=== PATIENT | female | born 1985 | race Caucasian/White ===

== ENCOUNTER 2019-04-20 07:39 | Emergency (ER) | payer OTHER ==
[~2019-04-20] VITALS: Ht 160 cm; Wt 127.0 kg
== END 2019-04-20 08:31 | disposition home or self-care (01) ==
LOC: ER 07:39
DX: G89.11 Acute pain due to trauma (principal); M25.562 Pain in left knee

== ENCOUNTER 2019-08-14 11:23 | Emergency (ER) | payer OTHER ==
[~2019-08-14] VITALS: Ht 160 cm; Wt 127.0 kg
== END 2019-08-14 16:14 | disposition home or self-care (01) ==
LOC: ER 11:23
DX: R42 Dizziness and giddiness (principal)

== ENCOUNTER 2019-10-23 10:12 | Outpatient (CLI) | payer OTHER | END 2019-10-23 15:00 | disposition home or self-care (01) | LOC: LAB 10:12 | DX: J11.1 Influenza due to unidentified influenza virus with other respiratory manifestations (principal); R05 Cough; R07.89 Other chest pain ==

== ENCOUNTER 2019-11-16 13:57 | Outpatient (CLI) | payer OTHER | END 2019-11-16 14:05 | disposition home or self-care (01) | LOC: LAB 13:57 | DX: J11.1 Influenza due to unidentified influenza virus with other respiratory manifestations (principal); J06.9 Acute upper respiratory infection, unspecified; R05 Cough ==

== ENCOUNTER 2019-11-24 08:02 | Inpatient (IN) | payer OTHER ==
[~2019-11-24] VITALS: Ht 160 cm; Wt 108.9 kg
--- NOTE | 2019-11-24 08:35 | NUR ---
PACIENTE FEMINA ALERTA Y ORIENTADA. LA MISMA SE VE SUDOROSA Y CON TOS PRODUCTIVA. LA MISMA REFIERE LISSETH TENIDO EN LAS ULTIMAS 24 HORAS 4 EPISODIOS DE DIARREAS. AL MOMENMTO DEL TRIAGE PRESENTO FIEBRE DE 101.2.
--- NOTE | 2019-11-24 10:08 | NUR ---
PACIENTE RECIBIDA EN MANOLO DE EMERGENCIAS ALERTA Y ORIENTADA , EVALUADA PO RLE DR. MANTILLA , QUEIN EVALUA PACIENTE Y ES UBICADA EN AREA DE [facility] K[facility] , [place] A PACIENTE SOBRE PROCEDIMEINTO DE AILAMINETO QUIEN PACIETE REFIER EN TENDER , MIS.. SILVANA MORIAH MUESTRA DE SANGR SANTY CANALIZA PACIENTE EN MNAO DERECHA CON KAREN MEDIDAS ASEPTICAS,PACIENTE SE MANTIEEN OBSERVACION POR CAMBIOS EN BURT CONDICON.
--- NOTE | 2019-11-24 15:57 | NUR ---
SE RECIBE PACIENTE ALERTA Y ORIENTADA EN LAS BARTOLO ESFERAS, EN CAMA CON BARANDAS ELEVADAS EN AREA DE SECCION K AISLAMIENTO. VENOPUNCION JOSUÉ DE EDEMA Y ENROJECIMIENTO BAJANDO 0.9%NSS AT 100ML/HR PATENTE EN BRAZO DERECHO. SE OTMAN SIGNOS VITALES LOS MISMOS ESTABLES AL MOMENTO. SE REALIZA MORIAH DE MUESTRA DE COVID-19 VIA NASAL. PACIENTE ORIENTADA SOBRE PROCEDIMIENTO LA MISMA INDICA ENTENDER. PACIENTE BAJO OBSERVACION CONTINUA POR CAMBIOS. CON TIMBRE ACCESIBLE.
== END 2019-12-05 17:20 | disposition home or self-care (01) | DRG 177 ==
LOC: ER 08:02 → SURH 17:16 → MEDJ 11-26 11:02
PROVIDERS: ADMIT Internal Medicine
PROC: 8E0ZXY6 Isolation (ICD-10-PCS; principal; 2019-11-24)
PROC: 4A033R1 Measurement of Arterial Saturation, Peripheral, Percutaneous Approach (ICD-10-PCS; 2019-11-24)
PROC: 3E0F7GC Introduction of Other Therapeutic Substance into Respiratory Tract, Via Natural or Artificial Opening (ICD-10-PCS; 2019-11-24)
DX: U07.1 COVID-19 (principal); J15.7 Pneumonia due to Mycoplasma pneumoniae; J12.89 Other viral pneumonia; J06.9 Acute upper respiratory infection, unspecified; E66.9 Obesity, unspecified; R43.0 Anosmia; R43.2 Parageusia

== ENCOUNTER 2020-11-29 08:24 | Emergency (ER) | payer OTHER ==
[~2020-11-29] VITALS: Ht 160 cm; Wt 127.0 kg
== END 2020-11-29 10:43 | disposition home or self-care (01) ==
LOC: ER 08:24
DX: J31.0 Chronic rhinitis (principal); R05 Cough; Z11.52 Encounter for screening for COVID-19

== ENCOUNTER 2021-01-23 10:15 | Emergency (ER) | payer OTHER ==
[~2021-01-23] VITALS: Ht 160 cm; Wt 125.2 kg
[2021-01-23] MEDS ORDERED: INTESTINEX680 M1 PO (15:43)
[2021-01-23] MEDS ORDERED: DICLOFENAC POTA50 MG PO (15:43)
[2021-01-23] MEDS ORDERED: LEVSIN/SL0.125 MG PO (15:43)
[2021-01-23] MEDS ORDERED: PEPCID AC20 MG PO (15:43)
== END 2021-01-23 15:58 | disposition home or self-care (01) ==
LOC: ER 10:15
DX: K52.9 Noninfective gastroenteritis and colitis, unspecified (principal); E86.0 Dehydration

== ENCOUNTER 2021-04-21 07:53 | Emergency (ER) | payer OTHER ==
[~2021-04-21] VITALS: Ht 233.7 cm; Wt 123.4 kg
[~2021-04-21 07:53] MED LIST: DICLOFENAC POTA50 MG PO; INTESTINEX680 M1 PO; LEVSIN/SL0.125 MG PO; PEPCID AC20 MG PO
[2021-04-21] MEDS ORDERED: IPRAT-ALBUT 0.5-3 ML IH (13:44)
[2021-04-21] MEDS ORDERED: BUDESONIDE0.5 MG/2 M IH (13:44)
[2021-04-21] MEDS ORDERED: MEDROLPACK PO (13:44)
[2021-04-21] MEDS ORDERED: MUCINEX DM ER1 EAC1 PO (13:44)
[2021-04-21] MEDS ORDERED: ZITHROMAX500 MG PO (13:44)
[2021-04-21] MEDS ORDERED: TESSALON PERLE100 M1 PO (13:44)
== END 2021-04-21 14:09 ==
LOC: ER 07:53
DX: J06.9 Acute upper respiratory infection, unspecified (principal); J98.01 Acute bronchospasm; Z03.818 Encounter for observation for suspected exposure to other biological agents ruled out

== ENCOUNTER 2021-05-18 09:10 | Outpatient (CLI) | payer OTHER ==
[~2021-05-18 09:10] MED LIST changes: +BUDESONIDE0.5 MG/2 M IH; +IPRAT-ALBUT 0.5-3 ML IH; +MEDROLPACK PO; +MUCINEX DM ER1 EAC1 PO; +TESSALON PERLE100 M1 PO; +ZITHROMAX500 MG PO
== END 2021-05-18 10:00 | disposition home or self-care (01) ==
LOC: PPH VACUNA 09:10
PROVIDERS: ATTEND Emergency Medicine Pediatric Emergency Medicine
DX: Z23 Encounter for immunization (principal)

== ENCOUNTER 2021-06-29 08:00 | Outpatient (CLI) | payer OTHER | END 2021-06-29 08:30 | disposition home or self-care (01) | LOC: PPH VACUNA 08:00 | PROVIDERS: ATTEND Emergency Medicine Pediatric Emergency Medicine | DX: Z23 Encounter for immunization (principal) ==

== ENCOUNTER 2021-08-25 13:31 | Outpatient (CLI) | payer OTHER | END 2021-08-25 16:05 | disposition home or self-care (01) | LOC: LAB 13:31 | DX: Z20.828 Contact with and (suspected) exposure to other viral communicable diseases (principal) ==

== ENCOUNTER 2021-08-28 09:50 | Emergency (ER) | payer OTHER ==
[~2021-08-28] VITALS: Ht 160 cm; Wt 123.8 kg
[2021-08-28] MEDS ORDERED: MULTI VITAMIN1 EACH PO (10:18)
[2021-08-28] MEDS ORDERED: ZITHROMAX TRI-500 MG PO (13:40)
== END 2021-08-28 13:40 | disposition home or self-care (01) ==
LOC: ER 09:50
DX: B34.9 Viral infection, unspecified (principal); Z11.52 Encounter for screening for COVID-19

== ENCOUNTER 2021-09-12 13:20 | Outpatient (CLI) | payer OTHER ==
[~2021-09-12 13:20] MED LIST changes: +MULTI VITAMIN1 EACH PO; +ZITHROMAX TRI-500 MG PO
== END 2021-09-12 13:41 | disposition home or self-care (01) ==
LOC: LAB 13:20
PROVIDERS: ATTEND General Practice
DX: Z20.820 Contact with and (suspected) exposure to varicella (principal)